=== PATIENT | male | born 1945 | race Caucasian/White ===

== ENCOUNTER 2017-05-31 10:49 | Observation (INO) ==
[2017-05-31] MEDS ORDERED: Nitroglycerin 0.4 MG TAB.SUBL SL ONE (11:00)
[2017-05-31] MEDS ORDERED: Aspirin 81 MG TAB.CHEW PO ONE (11:00)
[2017-05-31] MEDS ORDERED: Ondansetron 4 MG/2 ML VIAL ONE (11:28)
[2017-05-31] MEDS ORDERED: 0.9 % Sodium Chloride 1,000 ML IVC ONE (11:30)
[2017-05-31] MEDS ORDERED: Ondansetron 4 MG/2 ML VIAL IVP ONE (11:31)
[2017-05-31 11:38] LABS: Basophils # 0.1 K/mcL (0.0-0.2); Basophils % 0.9 %; Eosinophils # 0.1 K/mcL (0.0-0.6); Eosinophils % 1.5 %; Hematocrit 40.2 % (37.5-50.1); Hemoglobin 13.1 g/dL (12.9-16.9); Immature Granulocytes % 0.3 % (0-4); Lymphocytes # 1.5 K/mcL (0.6-4.6); Lymphocytes % 19.4 %; Mean Corpuscular HGB Conc 32.6 g/dL (31.6-35.5); Mean Corpuscular Hemoglobin 28.6 pg (28.0-33.3); Mean Corpuscular Volume 87.8 fL (83.0-100.0); Mean Platelet Volume 11.3 fL (9.4-12.4); Monocytes % 12.7 %; Neutrophils # 4.9 K/mcL (1.6-8.9); Platelet Count 223 K/mcL (140-400); Red Blood Count 4.58 M/mcL (4.19-5.50); Red Cell Distribution Width 13.3 % (11.5-14.5); Segmented Neutrophils % 65.2 %
[2017-05-31 12:55] LABS: Carbon Dioxide 25 mEq/L (23-29); Chloride 108 mEq/L (98-107); Potassium 3.8 mEq/L (3.5-5.1); Sodium 139 mEq/L (136-145)
[2017-05-31 13:01] LABS: BUN/Creatinine Ratio 19 (6-26); Blood Urea Nitrogen 12 mg/dL (8-23); Glucose 95 mg/dL (70-105); Lipase 4 Units/L (11-82); Osmolality,Calculated 288 (280-300); eGFR For African Americans > 60 (> 60); eGFR For Non-African Americans > 60 (> 60)
[2017-05-31] MEDS ORDERED: Naloxone 0.4 MG/ML INJ IVP PRN ×2 (15:14→15:15)
--- NOTE | 2017-05-31 15:14 | Emergency Department Note ---
Disposition Clinical Impression: Chest pain Disposition: Admitted As Inpatient Condition: Undetermined General Adult HPI - General Chief complaint: ED Chest Pain Stated complaint: Back/chest/Left arm pain Time Seen by Provider: 05/31/17 10:52 Source: patient Limitations: no limitations Nursing Notes Reviewed: Yes Vital Signs Reviewed: Yes - History of Present Illness HPI Narrative: This is a 72-year-old male presents with concern for chest pain. Chest pain has been present for approximately 3 days. He describes the pain as pressure- like. He has no fever or cough or recent illness. He has no recent stress testing or cardiac catheterization. He has no hemoptysis or history of pulmonary embolism. He denies calf pain or leg swelling. He does not follow with a animal feeder. General: No acute distress HEENT: Pupils equal and reactive to light, extraoccular muscle movement is normal, TMS are clear bilaterally. Heart: RRR, No murmor rub or gallop Lungs: lungs clear, no wheezing, rales or ronchi. ABD: SNT, no focal areas or tenderness, no guarding or rebound tenderness. Extremities: No cyanosis, clubbing or edema Neuro: CN 2-12 in tact, no focal deficit. strength 5/5. A 10-system review of systems was performed and is negative for pertinent findings except as documented above in the HPI. Medical decision making Atypical chest pain. EKG shows sinus bradycardia with left axis deviation nonspecific ST segment changes. Intervals normal. Ventricular rate 57 bpm. Patient received nitroglycerin trial with subsequent hypotension and bradycardia. I do suspect vagal episode. This resolved with IV fluids. Aspirin was administered. I did perform a CT scan of the chest to rule out pulmonary embolism or aortic dissection. This shows nonspecific chest adenopathy. It is possible that the adenopathy is causing his nonspecific chest wall pain however less likely. Possibly could benefit from pulmonary consultation to further evaluate causes of adenopathy. He has no recent infectious triggers. His chest pain improved with Tylenol. He has no history of recent cardiac workup. He is fairly challenging to risk stratified. I would admit for ACS rule out and trending of cardiac biomarkers. Pain Scale: 6 - Related Data Home Medications Medication Instructions Recorded Confirmed Tamsulosin [Flomax] 0.4 mg PO DAILY 12/22/16 12/22/16 Allergies Allergy/AdvReac Type Severity Reaction Status Date / Time No Known Allergies Allergy Verified 12/22/16 12:04 All systems ED: reviewed and negative except as stated. Past Medical History - Past Medical History Medical history: Reports: arthritis Surgical history: Reports: herniorrhaphy Psychiatric history: Reports: no psych history - Social History Smoking Status: Former smoker Smokeless Tobacco Status: No Alcohol use: Reports: none Drug use: Reports: none Physical Exam - General Limitations: no limitations General appearance: alert, in no apparent distress Course Vital Signs Temperature 98.1 F 05/31/17 10:56 Pulse Rate 60 05/31/17 10:56 Respiratory Rate 16 05/31/17 10:56 Blood Pressure 156/100 05/31/17 10:56 O2 Sat by Pulse Oximetry 97 05/31/17 10:56 Temperature 98.1 F 05/31/17 10:56 Pulse Rate 57 05/31/17 15:03 Respiratory Rate 16 05/31/17 15:03 Blood Pressure 130/73 05/31/17 15:03 O2 Sat by Pulse Oximetry 97 05/31/17 15:03 Oxygen Delivery Oxygen Delivery Room Air Medical Decision Making - Lab Data Result diagrams: 05/31/17 11:28 05/31/17 11:28 Lab Results 05/31/17 05/31/17 05/31/17 Range/Units 11:28 11:28 11:28 WBC 7.5 (4.3-11.1) K/mcL RBC 4.58 (4.19-5.50) M/mcL Hgb 13.1 (12.9-16.9) g/dL Hct 40.2 (37.5-50.1) % MCV 87.8 (83.0-100.0) fL MCH 28.6 (28.0-33.3) pg MCHC 32.6 (31.6-35.5) g/dL RDW 13.3 (11.5-14.5) % Plt Count 223 (140-400) K/mcL MPV 11.3 (9.4-12.4) fL Immature Gran % 0.3 (0-4) % Seg Neutrophils % 65.2 % Lymphocytes % 19.4 % Monocytes % 12.7 % Eosinophils % 1.5 % Basophils % 0.9 % Neutrophils # 4.9 (1.6-8.9) K/mcL Lymphocytes # 1.5 (0.6-4.6) K/mcL Monocytes # 1.0 (0.0-1.3) K/mcL Eosinophils # 0.1 (0.0-0.6) K/mcL Basophils # 0.1 (0.0-0.2) K/mcL Sodium 139 (136-145) mEq/L Potassium 3.8 (3.5-5.1) mEq/L Chloride 108 H (98-107) mEq/L Carbon Dioxide 25 (23-29) mEq/L BUN 12 (8-23) mg/dL Creatinine 0.62 L (0.70-1.30) mg/dL Est GFR ( Amer) > 60 (> 60) Est GFR (Non-Af Amer) > 60 (> 60) BUN/Creatinine Ratio 19 (6-26) Glucose 95 (70-105) mg/dL Calculated Osmolality 288 (280-300) Calcium 9.0 (8.6-10.3) mg/dL Troponin I < 0.03 (< 0.04) ng/mL Lipase 4 L (11-82) Units/L
[2017-05-31] MEDS ORDERED: Acetaminophen 325 MG TABLET PO PRN (15:15)
[2017-05-31] MEDS ORDERED: Nitroglycerin 0.4 MG TAB.SUBL SL PRN (15:17)
--- NOTE | 2017-05-31 15:35 | Internal Med History&Physical ---
Date of Encounter: 05/31/17 Time of Encounter: 15:32 Assessment and Plan (1) Chest pain Current visit: Yes Status: Acute We will admit the patient under observation status to the hospitalist service. We will put the patient on telemetry. We will trend his cardiac enzymes. We will put him in for a stress test tomorrow if cardiac enzymes are negative. We will check hemoglobin A 1C and lipid panel. Patient has risk factors that include former smoking and his age. The patient is ready been given aspirin. I will order nitroglycerin to be used when necessary. Qualifiers: Chest pain type: unspecified Qualified Code(s): R07.9 - Chest pain, unspecified (2) Hypotension Current visit: Yes Status: Acute This resolved after IV fluids. We will continue to monitor. Qualifiers: Hypotension type: unspecified hypotension type Qualified Code(s): I95.9 - Hypotension, unspecified (3) BPH (benign prostatic hyperplasia) Current visit: Yes Status: Acute Continue Flomax as blood pressure tolerates. Qualifiers: Lower urinary tract symptom presence: symptoms absent Qualified Code(s): N40.0 - Benign prostatic hyperplasia without lower urinary tract symptoms (4) DVT prophylaxis Current visit: Yes Status: Acute Lovenox subcutaneous Internal Medicine - H&P: HPI Chief complaint: Chest pain Admitted From: Home Plans for Post Hospital Care: Home History of present illness: Mr. Franklin is a 72 year old male who has a past history of BPH, former tobacco abuse who presents with a 2 day history of chest pain that he described as pressure with its worst being about 6-7 out of 10. He says it started yesterday afternoon while he was sitting and at the beginning he thought it started in the back and both its way to the right side of the chest before medications with the left side of the chest and then into his arms. This continued throughout the day and into this morning when he presented to the ED. He says the pain is described as pressure. He says he had a stress test about 3 or 4 years ago that was unremarkable. Initial workup in the ED was mostly unremarkable with cardiac enzymes, and back not elevated. He had an EKG with nonspecific ST or T-wave changes concerning for ischemia. He denies any fever or chills blurry vision and nausea vomiting shortness of breath abdominal pain or symptoms or neurological symptoms. When he presented to the ED he was noted to have a blood pressure that was in the 80s systolically and was given a liter of normal saline and ever since then he has been sustaining his systolic blood pressure in the 120s with a diastolic in the 70s. He was also given 324 mg of aspirin as well as 0.4 mg sublingual nitroglycerin, however this has not really resolved his discomfort. Past Med Surg Social Fam HX - Past Medical History Medical history: arthritis Psychiatric history: no psych history - Past Surgical History Surgical History: herniorrhaphy - Social History Smoking Status: Former smoker Smokeless Tobacco Status: No Alcohol use: none Drug use: none Internal Medicine - H&P: Meds Tamsulosin [Flomax] 0.4 mg PO DAILY 12/22/16 [History] 3 Allergy/AdvReac Type Severity Reaction Status Date / Time No Known Allergies Allergy Verified 12/22/16 12:04 All Systems PM: A 10-system review of systems was performed and is negative for pertinent findings except as documented above in the HPI. Review of systems: All systems reviewed are negative except for what is mentioned above - Constitutional Vitals: Temp Pulse Resp BP Pulse Ox 98.1 F 57 16 130/73 97 05/31/17 10:56 05/31/17 15:03 05/31/17 15:03 05/31/17 15:03 05/31/17 15:03 Exam: GEN: NAD HEENT: AT, NC, No cyanosis, oral mucosa is moist, No JVD Lymphatics: No lymphadenoapthy Eyes: Extrocular muscles intact, anicteric CVS:RRR. S1, S2, No m/r/g RESP: CTAB ABD: Soft, NT, ND, +BS EXT: No edema, No rashes, 2+ DP NEURO: Nonfocal, CN II-XII intact, No focal motor or sensory deficits Psych: Cooperative, Not anxious or depressed Internal Med - H&P Results - Labs CBC & Chem 7: 05/31/17 11:28 05/31/17 11:28
[2017-05-31 15:57] LABS: Hemoglobin A1C 5.5 %
[2017-05-31 16:11] LABS: Chol/HDL Ratio 3.2 (0-4.9)
[2017-06-01 01:43] LABS: Basophils # 0.1 K/mcL (0.0-0.2); Eosinophils # 0.1 K/mcL (0.0-0.6); Eosinophils % 1.3 %; Hematocrit 38.9 % (37.5-50.1); Hemoglobin 12.5 g/dL (12.9-16.9); Immature Granulocytes % 0.1 % (0-4); Lymphocytes # 1.9 K/mcL (0.6-4.6); Lymphocytes % 22.9 %; Mean Corpuscular HGB Conc 32.1 g/dL (31.6-35.5); Mean Corpuscular Hemoglobin 28.7 pg (28.0-33.3); Mean Corpuscular Volume 89.2 fL (83.0-100.0); Mean Platelet Volume 11.8 fL (9.4-12.4); Monocytes # 1.1 K/mcL (0.0-1.3); Monocytes % 13.3 %; Neutrophils # 5.1 K/mcL (1.6-8.9); Platelet Count 204 K/mcL (140-400); Red Blood Count 4.36 M/mcL (4.19-5.50); Red Cell Distribution Width 13.5 % (11.5-14.5); Segmented Neutrophils % 61.4 %
[2017-06-01 03:15] LABS: BUN/Creatinine Ratio 20 (6-26); Blood Urea Nitrogen 17 mg/dL (8-23); Calcium 8.7 mg/dL (8.6-10.3); Carbon Dioxide 29 mEq/L (23-29); Chloride 106 mEq/L (98-107); Glucose 100 mg/dL (70-105); Osmolality,Calculated 290 (280-300); Sodium 139 mEq/L (136-145); eGFR For African Americans > 60 (> 60); eGFR For Non-African Americans > 60 (> 60)
[2017-06-01] MEDS ORDERED: *HR* Enoxaparin 40 MG/0.4 ML SYRINGE SQ SCH (06:00)
[2017-06-01] MEDS ORDERED: Regadenoson 0.4 MG/5 ML SYRINGE IVP ONE (06:17)
--- NOTE | 2017-06-01 09:16 | Discharge Summary ---
Date of Encounter: 06/01/17 Time of Encounter: 09:14 - Discharge Diagnosis (1) Chest pain Priority: Primary Status: Acute Qualifiers: Chest pain type: unspecified Qualified Code(s): R07.9 - Chest pain, unspecified (2) Hypotension Priority: Primary Status: Acute Qualifiers: Hypotension type: unspecified hypotension type Qualified Code(s): I95.9 - Hypotension, unspecified (3) BPH (benign prostatic hyperplasia) Priority: Secondary Status: Acute Qualifiers: Lower urinary tract symptom presence: symptoms absent Qualified Code(s): N40.0 - Benign prostatic hyperplasia without lower urinary tract symptoms - Discharge Medications Home Medications: Tamsulosin [Flomax] 0.4 mg PO DAILY 12/22/16 [History] Allergies/Adverse Reactions: 3 Allergy/AdvReac Type Severity Reaction Status Date / Time No Known Allergies Allergy Verified 06/01/17 07:42 Procedures/tests Complete & Pending: Procedures Performed prior 72 hours Category Date Time Status NM andreia perf SPECT multi [NM] Routine Exams 06/01/17 07:00 Taken ECG 12 lead ECG [ECG] Stat Y 05/31/17 21:23 Ordered SP pharm nuclear stress Routine Y 06/01/17 07:00 Completed Date of admission: 05/31/17 14:56 Primary care physician: Kal Velazquez MD - Patient Status Disposition: Home, Self-Care Condition: Fair Overall status at discharge: patient is back to baseline - Discharge Instructions Instructions: Chest Pain (DC) Follow Up With: Kal Velazquez MD [Primary Care Provider] - 06/05/17 10:00 am (Dr velazquez [phone]) Forms: ED Satisfaction Letter - Diet and Activity Activity: increase activity as tolerated Diet: regular diet Hospital course: Mr. Franklin is a 72 year old male who has a past history of BPH, former tobacco abuse who presented with a 2 day history of chest pain that he described as pressure with its worst being about 6-7 out of 10. Initial workup in the ED was mostly unremarkable with cardiac enzymes, and back not elevated. He had an EKG with nonspecific ST or T-wave changes concerning for ischemia. He was admitted to the hospitalist service and his cardiac enzymes were trended and remained not elevated. He underwent nuclear stress test in the morning and it was unremarkable. He was discharged in stable condition on with follow-up with his primary care physician. - Time Spent with Patient Total time spent providing and/or coordinating discharge services: Greater than 30 minutes - Constitutional Vitals: Temp Pulse Resp BP Pulse Ox 98.0 F 68 14 121/70 94 06/01/17 03:21 06/01/17 03:21 06/01/17 03:21 06/01/17 03:21 06/01/17 03:21 Exam: GEN: NAD CVS: RRR. S1, S2, No m/r/g RESP: CTAB ABD: Soft, NT, ND, +BS EXT: No edema. 2+ DP. No rashes NEURO: Nonfocal
[2017-06-01 11:22] VITALS: BP 138/73
--- NOTE | 2017-06-01 17:15 | Electrocardiograph Report ---
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
--- NOTE | 2017-06-01 17:19 | Electrocardiograph Report ---
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
== END 2017-06-01 12:50 | disposition home or self-care (01) ==
LOC: 3BNU 10:49 → EMEROO 10:49 → 3BNU 15:30
PROVIDERS: ADMIT Registered Nurse; ATTEND Registered Nurse